=== PATIENT | male | born 1950 | race Caucasian/White ===

== ENCOUNTER 2016-07-24 22:51 | Inpatient (IN) | payer MEDICARE, BC, OTHER ==
[~2016-07-24] VITALS: Ht 190.5 cm; Wt 130.0 kg
[~2016-07-24 22:51] MED LIST: ACETAMIN-HYDROcod 325-5 MG PO; AMIO200 PO; ASPI81 PO; CLOP75 PO; CYMB60CA PO; DOCU1CAP39 PO; FENO1TAB76 PO; FURO20 PO; LEVEMIR SQ; METO25 PO; MISC-105; OMEG100037 PO; SIMV20 PO; WHEELCHAIR RENTAL RA; ZOLP10TA3 PO
[2016-07-24 22:53] VITALS: BP 149/77; PULSE 104; RESP 16; TEMP 96.5; O2SAT 93
[2016-07-24 23:01] VITALS: BP 171/85; PULSE 99; RESP 15; O2SAT 93
[2016-07-24 23:15] VITALS: BP 132/61; PULSE 92; RESP 16; O2SAT 93
[2016-07-24] MEDS ORDERED: SODIUM CHLOR 0.9% 1000 ML INJ 1,000 ML IV ONE (23:15)
--- NOTE | 2016-07-24 23:19 | PD ---
HPI Chief Complaint: Numbness/Tingling Time Seen by Provider: 23:00 Travel History International Travel<30 days: No Contact w/Intl Traveler<30days: No Traveled to known affect area: No History of Present Illness HPI 65-year-old male complaining of generalized malaise and weakness. Patient status post left eye surgery a week ago. Patient states that Dr. Chaudhari, melt helper in [place] , operated on his left eye. Patient was told that he has infection around the left eye. Patient states that he has some mild drainage from the left eye for the past 2 days. Patient was put on antibiotic gel and Keflex by mouth. Patient has decrease in appetite with generalized malaise and weakness since yesterday evening. Patient also developed severe diarrhea since yesterday evening. Patient states that he has intermittent fever since last night. 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 Patient states that the weakness on the left side is not new. Patient complains of severe generalized weakness that he is unable to ambulate this evening. Patient states that he has aching headache. Patient denies any right eye visual change. Patient denies any neck pain. Patient denies any chest pain or shortness of breath. Patient denies abdominal pain. Patient denies any nausea vomiting. Patient denies any blood or mucus in the stool. Patient denies dysuria or frequency. Patient has history of hypertension, diabetes, hyperlipidemia, CAD status post CABG and stent placement. Patient status post right carotid endarterectomy. Patient's on aspirin, Plavix. PFSH Past Medical History Arthritis: No Asthma: No Autoimmune Disease: No Blood Disorders: No Anxiety: No Depression: No Heart Rhythm Problems: No Cancer: No Cardiovascular Problems: Yes (HTN,CABG, STENTS x 2) High Cholesterol: Yes Chemotherapy: No Chest Pain: Yes Congestive Heart Failure: No COPD: No Cerebrovascular Accident: Yes Diabetes: Yes Patient Takes Glucophage: Yes Diminished Hearing: No Endocrine: No Gastrointestinal Disorders: No GERD: No Glaucoma: No Genitourinary: No Headaches: Yes Hepatitis: No Hiatal Hernia: No Hypertension: Yes Immune Disorder: No Kidney Stones: No Musculoskeletal: No Neurologic: Yes Psychiatric: No Reproductive: No Respiratory: No Integumentary: No Immunizations Current: Yes Migraines: Yes Radiation Therapy: No Renal Failure: No Seizures: No Sickle Cell Disease: No Sleep Apnea: No Thyroid Disease: No Ulcer: No Past Surgical History Abdominal Surgery: Yes (gallbladder removed appendectomy) AICD: No Appendectomy: Yes Arteriovenous Shunt: No Body Medical Devices: Pt and confirm no foriengn objects in body by accident or on purpose. Cardiac Surgery: Yes (right carotid endarterectomy AND LEFT,3 cardiac bypass) Cholecystectomy: Yes Ear Surgery: No Endocrine Surgery: No Eye Surgery: Yes (Left eye removal) Genitourinary Surgery: No Gynecologic Surgery: No Insulin Pump: No Joint Replacement: No Oral Surgery: No Pacemaker: No Thoracic Surgery: Yes (CABG) Other Surgery: Yes (CEA,KNEE) Social History Alcohol Use: Yes (SOCIAL) Tobacco Use: No Substance Use: No Allergies-Medications (Allergen,Severity, Reaction): Coded Allergies: No Known Allergies (Verified , 03/18/15) Reported Meds & Prescriptions Reported Meds & Active Scripts Active [ACETAMIN-HYDROcod 325-5 MG] 1 TAB Tab 1 Tab PO Q4H PRN Lasix 20 Mg Tab (Furosemide) 20 Mg Tab 20 Mg PO DAILY Levemir Insulin (Insulin Detemir) 100 Units/Ml Inj 20 Units SQ BID 30 Days Aspirin Low Strength (Aspirin) 81 Mg Chw 81 Mg PO DAILY Cordarone 200 Mg Tab (Amiodarone HCl) 200 Mg Tab 200 Mg PO Q12HR Simvastatin 20 mg (Simvastatin) 20 Mg Tab 1 Tab PO HS Metoprolol Tartrate 25 mg (Metoprolol Tartrate) 25 Mg Tab 25 Mg PO BID Tricor (Fenofibrate) 48 Mg Tab 48 Mg PO DAILY Cymbalta (Duloxetine Hcl) 60 Mg Cap 60 Mg PO DAILY Ambien 10 Mg Tab (Zolpidem Tartrate) 10 Mg Tab 10 Mg PO HS PRN Plavix (Clopidogrel Bisulfate) 75 Mg Tab 75 Mg PO DAILY Transport Chair Ultra Lig (Misc. Devices) 1 Mis Mis Ea Wheelchair Rental Removable Arms (Device) Device 1 Ea Colace 100 Mg Cap (Docusate Sodium) 100 Mg Cap 100 Mg PO DAILY Reported Fish Oil 1000 mg ([place]-3 Fatty Acids) 1 Cap Cap 1,000 Mg PO DAILY Review of Systems General / Constitutional: Positive: Fever Eyes: Positive: Drainage, Pain, No: Visual changes HENT: No: Headaches Cardiovascular: No: Chest Pain or Discomfort Respiratory: No: Shortness of Breath Gastrointestinal: No: Abdominal Pain Genitourinary: No: Dysuria Musculoskeletal: No: Pain Skin: No Rash Neurologic: No: Weakness Psychiatric: No: Depression Endocrine: No: Polydipsia Hematologic/Lymphatic: No: Easy Bruising Physical Exam Narrative GENERAL: Well-nourished, well-developed patient. SKIN: Focused skin assessment warm/dry. HEAD: Normocephalic. EYES: No scleral icterus. No injection or drainage. Patient has soft tissue swelling periorbital area left eye. NECK: Supple, trachea midline. No JVD or lymphadenopathy. CARDIOVASCULAR: Regular rate and rhythm without murmurs, gallops, or rubs. RESPIRATORY: Breath sounds equal bilaterally. No accessory muscle use. GASTROINTESTINAL: Abdomen soft, non-tender, nondistended. MUSCULOSKELETAL: No cyanosis, or edema. BACK: Nontender without obvious deformity. No CVA tenderness. Neurologic exam: Patient's awake and alert oriented 3. Patient moves all extremities well. Patient has left-sided drooping from previous surgery. No other obvious focal neurological deficit. Data Data Last Documented VS Vital Signs Date Time Temp Pulse Resp B/P Pulse Ox O2 Delivery O2 Flow Rate FiO2 07/25/16 02:04 96 20 158/74 98 Room Air 07/24/16 22:53 96.5 Orders Lactic Acid Sepsis Protocol (07/24/16 23:08) Electrocardiogram (07/24/16 23:09) Complete Blood Count With Diff (07/24/16 23:09) Comprehensive Metabolic Panel (07/24/16 23:09) Creatine Kinase (Cpk) (07/24/16 23:09) Troponin I (07/24/16 23:09) Prothrombin Time / Inr (Pt) (07/24/16 23:09) Act Partial Throm Time (Ptt) (07/24/16 23:09) Blood Culture (07/24/16 23:09) Urinalysis - C+S If Indicated (07/24/16 23:09) Chest, Single Ap (07/24/16 23:09) Ct Brain W/O Iv Contrast(Rout) (07/24/16 23:09) Iv Access Insert/Monitor (07/24/16 23:09) Ecg Monitoring (07/24/16 23:09) Oximetry (07/24/16 23:09) Sodium Chlor 0.9% 1000 Ml Inj (Ns 1000 M (07/24/16 23:15) CKMB (07/24/16 23:15) CKMB% (07/24/16 23:15) Ct Facial Bones W/O Iv Cont (07/24/16 ) Vancomycin Inj (Vancomycin Inj) (07/25/16 01:15) Ampicillin-Sulbactam Inj (Unasyn Inj) (07/25/16 01:15) Morphine Inj (Morphine Inj) (07/25/16 02:45) Ondansetron Inj (Zofran Inj) (07/25/16 02:45) Sodium Chlor 0.9% 1000 Ml Inj (Ns 1000 M (07/25/16 02:45) Labs Laboratory Tests Test 07/24/16 23:15 White Blood Count 9.1 TH/MM3 Red Blood Count 5.08 MIL/MM3 Hemoglobin 14.0 GM/DL Hematocrit 40.5 % Mean Corpuscular Volume 79.9 FL Mean Corpuscular Hemoglobin 27.5 PG Mean Corpuscular Hemoglobin 34.5 % Concent Red Cell Distribution Width 15.0 % Platelet Count 194 TH/MM3 Mean Platelet Volume 8.1 FL Neutrophils (%) (Auto) 81.2 % Lymphocytes (%) (Auto) 9.3 % Monocytes (%) (Auto) 8.8 % Eosinophils (%) (Auto) 0.0 % Basophils (%) (Auto) 0.7 % Neutrophils # (Auto) 7.4 TH/MM3 Lymphocytes # (Auto) 0.9 TH/MM3 Monocytes # (Auto) 0.8 TH/MM3 Eosinophils # (Auto) 0.0 TH/MM3 Basophils # (Auto) 0.1 TH/MM3 CBC Comment DIFF FINAL Differential Comment Prothrombin Time 11.7 SEC Prothromb Time International 1.1 RATIO Ratio Activated Partial 28.1 SEC Thromboplast Time Sodium Level 132 MEQ/L Potassium Level 3.5 MEQ/L Chloride Level 100 MEQ/L Carbon Dioxide Level 20.3 MEQ/L Anion Gap 12 MEQ/L Blood Urea Nitrogen 25 MG/DL Creatinine 2.04 MG/DL Estimat Glomerular Filtration 33 ML/MIN Rate Random Glucose 104 MG/DL Lactic Acid Level 2.3 mmol/L Calcium Level 9.0 MG/DL Total Bilirubin 0.9 MG/DL Aspartate Amino Transf 53 U/L (AST/SGOT) Alanine Aminotransferase 30 U/L (ALT/SGPT) Alkaline Phosphatase 64 U/L Total Creatine Kinase 318 U/L Creatine Kinase MB 1.7 NG/ML Creatine Kinase MB % 0.5 % Troponin I 0.03 NG/ML Total Protein 7.5 GM/DL Albumin 3.5 GM/DL MDM Medical Decision Making Medical Screen Exam Complete: Yes Emergency Medical Condition: Yes Interpretation(s) Last Impressions Chest X-Ray 07/24/16 0485 Signed Impressions: Service Date/Time: Sunday, July 24, 2016 23:24 - CONCLUSION: No acute disease. Rodriguez Sifuentes Jr., MD 1:[address] Brain shows no acute intracranial abnormality. CBC within normal limit. WBC 9.1. 81 neutrophil. Sodium 132. Bicarbonate 20.3. BUN 25. Creatinine 2.04. Lactic acid 2.3. Total CK 318. CT of facial bones shows artificial global involving the left orbit with significant preseptal soft tissue swelling. Retrobulbar tissues are clean. 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 Differential Diagnosis Differential diagnosis including sepsis, dehydration, electrolyte abnormality, TIA, CVA, viral syndrome. Narrative Course 65-year-old male with generalized malaise and weakness. Patient has diarrhea since last night. Patient status post CVA in the past. Patient status post left eye surgery a week ago and on Keflex and antibiotic gel. Normal saline solution 1 L IV bolus. Unasyn 3 g IV. Vancomycin 1 g IV. I spoke with melt helper on-call for Dr. Chaudhari. Advised medical admission and consult ophthalmology road commissioner for [place]. Diagnosis Primary Impression: Periorbital cellulitis of left eye Additional Impressions: Sinusitis Qualified Code: J01.40 - Subacute pansinusitis Renal insufficiency Gastroenteritis Admitting Information Admitting Physician Requests: Admit Teo Chen MD July 24, 2016 23:19
[2016-07-24 23:26] LABS: AUTOMATED NEUTROPHIL # 7.4 TH/MM3 (1.8-7.7); BASOPHIL # 0.1 TH/MM3 (0-0.2); BASOPHIL % 0.7 % (0.0-2.0); HEMATOCRIT 40.5 % (39.0-51.0); HEMO FLAGS DIFF FINAL; LYMPH % 9.3 % (9.0-44.0); LYMPHOCYTE # 0.9 TH/MM3 (1.0-4.8); MEAN CELL VOLUME 79.9 FL (80.0-100.0); MEAN CORPUSCULAR HEMOGLOBIN 27.5 PG (27.0-34.0); MEAN CORPUSCULAR HGB CONC 34.5 % (32.0-36.0); MONO % 8.8 % (0.0-8.0); NEUT % 81.2 % (16.0-70.0); PLATELET COUNT 194 TH/MM3 (150-450); RED BLOOD COUNT 5.08 MIL/MM3 (4.50-5.90); WHITE BLOOD COUNT 9.1 TH/MM3 (4.0-11.0)
--- NOTE | 2016-07-24 23:33 | RADRPT ---
EXAM DATE/TIME: 07/24/2016 23:24 [facility] COMPARISON: CHEST SINGLE AP, October 07, 2015, 6:20. INDICATIONS : Chest pain, weakness. MEDICAL HISTORY : Stroke. Hypercholesterolemia. Hypertension. Diabetic Dyspnea SURGICAL HISTORY : CABG. ENCOUNTER: Initial ACUITY: 1 day PAIN SCORE: 0/10 LOCATION: Bilateral chest FINDINGS: 2 portable frontal views of the chest demonstrate the lungs to be symmetrically aerated without evide nce of mass, infiltrate or effusion. The cardiomediastinal contours are unremarkable. Osseous struc tures are intact. Median sternotomy wires. CONCLUSION: No acute disease. Rodriguez Sifuentes Jr., MD on July 24, 2016 at 23:31 Board Certified Radiologist. This report was verified electronically.
[2016-07-24 23:43] LABS: APTT (PATIENT) 28.1 SEC (24.3-30.1); INTERNATIONAL NORMALIZED RATIO 1.1 RATIO; PROTHROMBIN TIME - PATIENT 11.7 SEC (9.8-11.6)
[2016-07-24 23:49] LABS: ALT (GPT) 30 U/L (12-78); ANION GAP 12 MEQ/L (5-15); AST (GOT) 53 U/L (15-37); BICARBONATE 20.3 MEQ/L (21.0-32.0); BLOOD UREA NITROGEN 25 MG/DL (7-18); CHLORIDE 100 MEQ/L (98-107); GLOMERULAR FILTRATION RATE 33 ML/MIN (>89); POTASSIUM 3.5 MEQ/L (3.5-5.1); SODIUM (NA) 132 MEQ/L (136-145)
[2016-07-24 23:53] LABS: ALKALINE PHOSPHATASE 64 U/L (45-117); CREATINE KINASE 318 U/L (39-308); TOTAL BILIRUBIN ADULT 0.9 MG/DL (0.2-1.0)
[2016-07-25] VITALS (11 sets, daily range): BP systolic 123–158; BP diastolic 65–79; PULSE 84–100; RESP 16–25; TEMP 98.6–101; O2SAT 90–98
[2016-07-25 00:05] LABS: CKMB 1.7 NG/ML (0.5-3.6)
--- NOTE | 2016-07-25 01:01 | RADRPT ---
EXAM DATE/TIME: 07/25/2016 00:36 [facility] COMPARISON: CT BRAIN W/O CONTRAST, March 18, 2015, 19:55. INDICATIONS : Cephalgia. General weakness. Fever. RADIATION DOSE: 63.18 CTDIvol (mGy) MEDICAL HISTORY : Cerebrovascular disease. Hypertension. SURGICAL HISTORY : CABG Left eye removal one week ago. ENCOUNTER: Initial ACUITY: 1 week PAIN SCALE: 5/10 LOCATION: cranial TECHNIQUE: Multiple contiguous axial images were obtained of the head. Using automated exposure control and adj ustment of the mA and/or kV according to patient size, radiation dose was kept as low as reasonably a chievable to obtain optimal diagnostic quality images. FINDINGS: CEREBRUM: The ventricles are normal for age. No evidence of midline shift, mass lesion, hemorrhage or acute in farction. No extra-axial fluid collections are seen. POSTERIOR FOSSA: The cerebellum and brainstem are intact. The 4th ventricle is midline. The cerebellopontine angle i s unremarkable. EXTRACRANIAL: The paranasal sinuses and mastoid air cells are clear.. SKULL: The calvaria is intact. No evidence of skull fracture. CONCLUSION: 1. See the CT of the facial bones dictated separately. 2. No acute intracranial abnormality. Rodriguez Sifuentes Jr., MD on July 25, 2016 at 0:58 Board Certified Radiologist. This report was verified electronically.
--- NOTE | 2016-07-25 01:04 | RADRPT ---
EXAM DATE/TIME: 07/25/2016 00:36 [facility] COMPARISON: No previous studies available for comparison. INDICATIONS : Patient left eye removal one week ago. Complains of general weakness, headache and fever. RADIATION DOSE: 63.18 CTDIvol (mGy) MEDICAL HISTORY : Cerebrovascular disease. Hypertension. SURGICAL HISTORY : CABG Left eye removal. ENCOUNTER: Initial ACUITY: 1 week PAIN SCORE: 5/10 LOCATION: Left facial TECHNIQUE: Volumetric scanning of the facial bones was performed. Using automated exposure control and adjustme nt of the mA and/or kV according to patient size, radiation dose was kept as low as reasonably achiev able to obtain optimal diagnostic quality images. FINDINGS: There is an artificial eye involving the left orbit. There is soft tissue swelling involving the pre -septal soft tissues. The retro-bulbar fat is clean. Optic nerve and extraocular muscles are unremark able. The right globe in order unremarkable. Mucosal thickening is seen involving the frontal sinuses bilaterally and anterior ethmoid air cells bilaterally. No air-fluid levels. CONCLUSION: 1. Artificial globe involving the left orbit with significant preseptal soft tissue swelling. Retrobu lbar tissues are clean. 2. 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 Rodriguez Sifuentes Jr., MD on July 25, 2016 at 1:00 Board Certified Radiologist. This report was verified electronically.
[2016-07-25] MEDS ORDERED: AMPICILLIN-SULBACTAM INJ 3 GM in SODIUM CHLORIDE 0.9% INJ 100 ML IV ONE (01:15)
[2016-07-25] MEDS ORDERED: VANCOMYCIN INJ 1,000 MG in SODIUM CHLOR 0.9% 250 ML INJ 250 ML IV ONE (01:15)
[2016-07-25 01:16] LABS: LACTIC ACID GHOST NOT REPORTABLE
[2016-07-25] MEDS ORDERED: MORPHINE SULFATE 4 MG/ML INJ IV PUSH ONE (02:45)
[2016-07-25] MEDS ORDERED: ONDANSETRON HCL 4 MG/2 ML VIAL IV PUSH ONE (02:45)
[2016-07-25] MEDS ORDERED: SODIUM CHLOR 0.9% 1000 ML INJ 1,000 ML IV SCH (02:45)
[2016-07-25] MEDS ORDERED: Vancomycin Consult Pharmacy 1 EA OTHER SCH (03:30)
[2016-07-25] MEDS ORDERED: GLUCAGON 1 MG/ML VIAL OTHER PRN (03:30)
[2016-07-25] MEDS ORDERED: SODIUM CHLORIDE 0.9% FLUSH 10 ML FLUSH IV FLUSH PRN (03:30)
[2016-07-25] MEDS ORDERED: NALOXONE HCL 0.4 MG/ML AMP IV PRN (03:30)
[2016-07-25] MEDS ORDERED: ONDANSETRON HCL 4 MG/2 ML VIAL IVP PRN (03:30)
[2016-07-25] MEDS ORDERED: DEXTROSE 50% IN WATER 50 ML VIAL(D50) IV PUSH PRN (03:30)
--- NOTE | 2016-07-25 03:37 | HHI.HP ---
[facility] Lenard Marti MD Admission Diagnosis periorbital cellulitis. Renal insufficiency Diagnoses: Chief Complaint: cant move my arm and leg Travel History International Travel<30 Days: No Contact w/Intl Traveler <30 Da: No Traveled to Known Affected Are: No Sepsis Criteria SIRS Criteria (2 or more): Heart rate over 90 History of Present Illness hx from patient, ER communication and review of records stated came to hospital because he could not move his LUE and LLE , with associated numbness and tingling starting around 10p.m. 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 and this is second time since surgery, had fever, chills no nausea, no vomiting, no black or red stool, no blood in urine however, had diarrhea- 2 days, about 10x each day no drainage or pus from surgery site he did see his eye surgeon on Saturday and has an appointment to see him tomorrow Review of Systems Except as stated in HPI: all other systems reviewed are Neg Past Family Social History Past Medical History cva- 2015 - residual weakness on LUE and LLE htn dm Past Surgical History left eye surgery last coronoary angiogram Allergies: Coded Allergies: No Known Allergies (Verified , 03/18/15) Family History none Social History never smoke socially only drinks no drugs Physical Exam Vital Signs Vital Signs Date Time Temp Pulse Resp B/P Pulse Ox O2 Delivery O2 Flow Rate FiO2 07/25/16 02:04 96 20 158/74 98 Room Air 07/25/16 00:51 88 18 150/79 94 Room Air 07/24/16 23:15 92 16 132/61 93 Room Air 07/24/16 23:01 99 15 171/85 93 Room Air 07/24/16 22:53 96.5 104 16 149/77 93 Room Air Physical Exam GENERAL: This is a well-nourished, well-developed patient, in no apparent distress. SKIN: No rashes, ecchymoses or lesions. Cool and dry. HEAD: Atraumatic. Normocephalic. No temporal or scalp tenderness. EYES: LEFT eye shut, no drianage from surgical site ENT: Nose without bleeding, purulent drainage or septal hematoma. . Airway patent. NECK: Trachea midline. No JVD. Supple, nontender, no meningeal signs. CARDIOVASCULAR: Regular rate and rhythm without murmurs, gallops, or rubs. RESPIRATORY: bilaerally decreased air entry GASTROINTESTINAL: Abdomen soft, non-tender, nondistended. No guarding. MUSCULOSKELETAL: Extremities without clubbing, cyanosis, or edema. No calf tenderness. NEURO:- LUE and LLE about 3/5- difficult exam due to pt's body habitus, left facial droop- was told chronic. Normal speech. Laboratory Laboratory Tests Test 07/24/16 23:15 White Blood Count 9.1 Red Blood Count 5.08 Hemoglobin 14.0 Hematocrit 40.5 Mean Corpuscular Volume 79.9 Mean Corpuscular Hemoglobin 27.5 Mean Corpuscular Hemoglobin 34.5 Concent Red Cell Distribution Width 15.0 Platelet Count 194 Mean Platelet Volume 8.1 Neutrophils (%) (Auto) 81.2 Lymphocytes (%) (Auto) 9.3 Monocytes (%) (Auto) 8.8 Eosinophils (%) (Auto) 0.0 Basophils (%) (Auto) 0.7 Neutrophils # (Auto) 7.4 Lymphocytes # (Auto) 0.9 Monocytes # (Auto) 0.8 Eosinophils # (Auto) 0.0 Basophils # (Auto) 0.1 CBC Comment DIFF FINAL Differential Comment Prothrombin Time 11.7 Prothromb Time International 1.1 Ratio Activated Partial 28.1 Thromboplast Time Sodium Level 132 Potassium Level 3.5 Chloride Level 100 Carbon Dioxide Level 20.3 Anion Gap 12 Blood Urea Nitrogen 25 Creatinine 2.04 Estimat Glomerular Filtration 33 Rate Random Glucose 104 Lactic Acid Level 2.3 Calcium Level 9.0 Total Bilirubin 0.9 Aspartate Amino Transf 53 (AST/SGOT) Alanine Aminotransferase 30 (ALT/SGPT) Alkaline Phosphatase 64 Total Creatine Kinase 318 Creatine Kinase MB 1.7 Creatine Kinase MB % 0.5 Troponin I 0.03 Total Protein 7.5 Albumin 3.5 Date/Time Procedure Status Source Growth 07/24/16 23:15 Aerobic Blood Culture Received Blood Peripheral Pending 5/9/17 23:15 Anaerobic Blood Culture Received Blood Peripheral Pending Result Diagram: 07/24/16 2315 07/24/165 Imaging Last [address] 07/24/162308 Signed Impressions: Service Date/Time: Monday, July 25, 2016 00:36 - CONCLUSION: 1. See the CT of the facial bones dictated separately. 2. No acute intracranial abnormality. Rodriguez Sifuentes Jr., MD Chest X-Ray 07/24/162308 Signed Impressions: Service Date/Time: Sunday, July 24, 2016 23:24 - CONCLUSION: No acute disease. Rodriguez Sifuentes Jr., MD Maxillofacial CT 07/24/16 0000 Signed Impressions: Service Date/Time: Monday, July 25, 2016 00:36 - CONCLUSION: 1. Artificial globe involving the left orbit with significant preseptal soft tissue swelling. Retrobulbar tissues are clean. 2. 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 Rodriguez Sifuentes Jr., MD Assessment and Plan Assessment and Plan Impression: Probable SIRS recent left eye surgery with artificial globe Left sided weakness- acute on chronic per patient possible TIA Acute renal failure Lactic acid acidosis Plan: iv hydration with NS with 40meq kcl at 84cc/hr neurochecks q4hrs prior imaging studies reviewed- echo- carotid sono repeat renal function and lactic acid level post hydration hold metformin dvt prophylaxis with lovenox Discussed Condition With patient, ER MD , nursing staff Physician Certification 2 Midnight Certification Type: Admission for Inpatient Services Order for Inpatient Services The services are ordered in accordance with Medicare regulations or non- Medicare payer requirements, as applicable. In the case of services not specified as inpatient-only, they are appropriately provided as inpatient services in accordance with the 2-midnight benchmark. Estimated LOS (days): 2 days is the estimated time the patient will need to remain in the hospital, assuming treatment plan goals are met and no additional complications. Post-Hospital Plan: Home Ally Dawkins MD July 25, 2016 03:37
[2016-07-25] MEDS ORDERED: VANCOMYCIN 1,000 MG/NS 250 ML IV ONE ×2 (04:00)
[2016-07-25] MEDS: NS + KCL 40 MEQ INJ 1,000 ML IV SCH ×2 (04:12→16:42)
[2016-07-25] MEDS: AMPICILLIN-SULBACTAM INJ 3 GM in SODIUM CHLORIDE 0.9% INJ 100 ML IV SCH ×4 (04:12→21:20)
[2016-07-25] MEDS ORDERED: FENO1TAB76 PO (04:29)
[2016-07-25] MEDS ORDERED: PLAV75TA29 PO (04:29)
[2016-07-25] MEDS ORDERED: CYMB60CA PO (04:29)
[2016-07-25] MEDS ORDERED: SIMV20TA PO (04:29)
[2016-07-25] MEDS ORDERED: FURO1TAB62 PO (04:29)
[2016-07-25] MEDS ORDERED: AMBI10TA PO (04:29)
[2016-07-25] MEDS ORDERED: METO25TA3 PO (04:29)
[2016-07-25] MEDS ORDERED: NORC5TAB PO (04:29)
[2016-07-25] MEDS ORDERED: LEVEMIR SQ (04:29)
[2016-07-25] MEDS ORDERED: ASPI1TAB69 PO (04:29)
[2016-07-25] MEDS: INSULIN ASPART SUPPLEMENTAL SCALE SQ SCH ×4 (06:46→21:00)
[2016-07-25 07:16] LABS: BLOOD, URINE TRACE (NEG); GLUCOSE,URINE NEG (NEG); KETONE, URINE TRACE mg/dL (NEG); MUCUS URINE FEW /lpf (OCC); NITRITE,URINE NEG (NEG); SQUAMOUS EPITHELIAL CELL URINE <1 /hpf (0-5); URIC ACID CRYSTALS, URINE OCC /hpf; URINE COLOR YELLOW (YELLW/STRAW)
[2016-07-25 07:17] LABS: COMMENT (UR) CULT NOT INDICATED; CULTURE IF INDICATED CULT NOT INDICATED
[2016-07-25] MEDS: SODIUM CHLORIDE 0.9% FLUSH 10 ML FLUSH IV FLUSH SCH ×2 (09:00→21:20)
[2016-07-25] MEDS: FUROSEMIDE 20 MG TAB PO SCH (09:30)
[2016-07-25] MEDS: DULoxetine HCl DR 60 MG CAP PO SCH (09:30)
[2016-07-25] MEDS: METOPROLOL TARTRATE 25 MG TAB PO SCH ×2 (09:30→21:19)
[2016-07-25] MEDS: FENOFIBRATE 48 MG TAB PO SCH (09:30)
[2016-07-25] MEDS: INSULIN DETEMIR 100 UNITS/ML VIAL SQ SCH ×2 (09:33→21:54)
[2016-07-25] MEDS ORDERED: ACETAMINOPHEN 325 MG TAB PO PRN (10:15)
[2016-07-25 14:07] LABS: C. DIFF EPI 027 PRESUMPTIVE NEGATIVE (NEGATIVE); C. DIFF TOXIN PCR NEGATIVE (NEGATIVE)
--- NOTE | 2016-07-25 16:21 | HHI.PR ---
Subjective Remarks Follow-up for left-sided weakness and diarrhea. Patient these have diarrhea. Patient stated that he still feels significant weakness on his left side. Deny any dominant pain, nausea vomiting. Patient had a fever today. Otherwise he has no other complaints. Objective Vitals Vital Signs Date Time Temp Pulse Resp B/P Pulse Ox O2 Delivery O2 Flow Rate FiO2 07/25/16 12:00 99.9 86 22 129/75 95 07/25/16 08:00 101.0 100 25 145/79 95 07/25/16 04:58 100.0 92 21 142/77 98 07/25/16 04:00 96 17 131/65 97 Nasal Cannula 2 07/25/16 03:00 90 Room Air 07/25/16 03:00 96 Nasal Cannula 2 07/25/16 02:04 96 20 158/74 98 Room Air 07/25/16 00:51 88 18 150/79 94 Room Air 07/24/16 23:15 92 16 132/61 93 Room Air 07/24/16 23:01 99 15 171/85 93 Room Air 07/24/16 22:53 96.5 104 16 149/77 93 Room Air I/O 07/24/16 07/24/16 07/24/16 07/25/16 07/25/16 07/25/16 06:59 14:59 22:59 06:59 14:59 22:59 Intake Total 75 ml 250 ml Output Total 1600 ml Balance 75 ml -1350 ml Intake Oral 75 ml 250 ml Output Urine Total 1600 ml # Voids 1 1 # Bowel Movements 1 3 Result Diagram: 07/24/16 2315 07/24/16 2315 Objective Remarks GENERAL: in NAD HEENT: left eyelid is matted shut. CARDIOVASCULAR: Regular rate and rhythm without murmurs, gallops, or rubs. RESPIRATORY: Breath sounds equal bilaterally. No accessory muscle use. GASTROINTESTINAL: Abdomen soft, non-tender, nondistended. MUSCULOSKELETAL: No cyanosis, or edema. BACK: Nontender without obvious deformity. No CVA tenderness. NEURO: AAO X 3. CN 2-12 intact. Sensation and motor grossly intact. Medications and IVs Current Medications Sodium Chloride 1,000 ml @ 999 mls/hr BOLUS ONCE IV Last administered on t 23:21; Start 07/24/16 at 23:15; Stop 07/25/16 at 00:15; Status DC Vancomycin HCl 1000 mg/Sodium Chloride 250 ml @ 250 mls/hr ONCE ONCE IV Last administered on 07/25/16 02:56; Start 07/25/16 at 01:15; Stop 07/25/16 at 02:14 ; Status DC Ampicillin Sodium/ Sulbactam Sodium/ Sodium Chloride (Unasyn Inj/NS Inj) 100 ml @ 200 mls/hr ONCE ONCE IV ; Start 07/25/16 at 01:15; Stop 07/25/16 at 01:44; Status Cancel Morphine Sulfate (Morphine Inj) 2 mg ONCE ONCE IV PUSH Last administered on 02:57; Start 07/25/16 at 02:45; Stop 07/25/16 at 02:46; Status DC Ondansetron HCl 4 mg 4 mg ONCE ONCE IV PUSH Last administered on 07/25/16 02: 57; Start 07/25/16 at 02:45; Stop 07/25/16 at 02:46; Status DC Sodium Chloride (NS 1000 ml Inj) 1,000 ml @ 125 mls/hr Q8H IV Last administered on 07/25/16 02:57; Start 07/25/16 at 02:45; Stop 07/25/16 at 03:39 ; Status DC Sodium Chloride (NS Flush) 2 ml UNSCH PRN IV FLUSH FLUSH AFTER USING IV ACCESS ; Start 07/25/16 at 03:30 Sodium Chloride (NS Flush) 2 ml BID IV FLUSH ; Start 07/25/16 at 09:00 Ondansetron HCl (Zofran Inj) 4 mg Q6H PRN IVP NAUSEA OR VOMITING; Start at 03:30 Naloxone HCl 0.4 mg 0.4 mg UNSCH PRN IV SEE LABEL COMMENTS; Start 07/25/16 at 03:30 Pharmacy Profile Note (Vancomycin Consult Pharmacy) 0 ml @ 0 mls/hr UNSCH OTHER ; Start 07/25/16 at 03:30 Dextrose (D50w (Vial) Inj) 25 ml UNSCH PRN IV PUSH HYPOGLYCEMIA-SEE COMMENTS; Start 07/25/16 at 03:30 Glucagon (Glucagon Inj) 1 mg UNSCH PRN OTHER HYPOGLYCEMIA-SEE COMMENTS; Start 07/25/16 at 03:30 Insulin Aspart 1 1 ACHS SLIDING SCALE SQ Last administered on 07/25/16 12:10 ; Start 07/25/16 at 07:00 Ampicillin Sodium/ Sulbactam Sodium 3 gm/Sodium Chloride 100 ml @ 200 mls/hr Q6H IV Last administered on 07/25/16 09:37; Start 07/25/16 at 04:00 Potassium Chloride/Sodium Chloride 1,000 ml @ 84 mls/hr [id number] IV Last administered on 07/25/16 04:12; Start 07/25/16 at 03:45 Vancomycin HCl/ Sodium Chloride (Vancomycin Inj/ NS 250 ml Inj) 250 ml @ 250 mls/hr ONCE ONCE IV Last administered on 07/25/16 05:52; Start 07/25/16 at 04 :00; Stop 07/25/16 at 04:59; Status DC Duloxetine HCl (Cymbalta Dr) 60 mg DAILY PO Last administered on 07/25/16 09: 30; Start 07/25/16 at 09:00 Fenofibrate (Tricor) 48 mg DAILY PO Last administered on 07/25/16 09:30; Start 07/25/16 at 09:00 Furosemide (Lasix) 20 mg DAILY PO Last administered on 07/25/16 09:30; Start 07/25/16 at 09:00 Insulin Detemir (Levemir Inj) 20 units BID SQ Last administered on 07/25/16 09 :33; Start 07/25/16 at 09:00 Metoprolol Tartrate (Lopressor) 25 mg BID PO Last administered on 07/25/16 09: 30; Start 07/25/16 at 09:00 Zolpidem Tartrate (Ambien) 10 mg HS PRN PO INSOMNIA; Start 07/25/16 at 06:15 Pravastatin Sodium (Pravachol) 40 mg HS PO ; Start 07/25/16 at 21:00 Acetaminophen (Tylenol) 650 mg Q4H PRN PO fever>101; Start 07/25/16 at 10:15 Metronidazole (Flagyl) 500 mg Q8HR PO ; Start 07/25/16 at 16:15 A/P Assessment and Plan Probable SIRS -Fever and tachycardia. Lactic acidosis 2.5. -Questionable preseptal cellulitis. -See treatment as below. recent left eye surgery with artificial globe -CT scan showed preseptal edema and sinus disease. -patient is spiking fevers so was started on unasyn and vancomycin for possible cellulitis. -Continue Unasyn and vancomycin. Cashier Wrapper and infectious disease consulted. Pending recommendation. Left sided weakness- acute on chronic per patient -Patient has a history of CVA. Home medication resumed. -possible TIA. Patient stated that he feels like his left side is a lot weaker but on exam the pretty equal. -We'll get MRI. Diarrhea -C. difficile negative. Most likely secondary to antibiotic use. Patient was put on Flagyl by infectious disease. We'll also start probiotics. Acute renal failure -No baseline. Patient is on IV fluids. Will follow with a repeat creatinine. Strict ins and outs. Type 2 diabetes insulin dependent -On insulin sliding scale. Metformin held secondary to acute renal failure. dvt prophylaxis with lovenox Amberly Bishop MD July 25, 2016 16:21
--- NOTE | 2016-07-25 16:42 | PD.CONS ---
History of Present Illness Service Infectious disease Consult Requested By Dr Jesenia Bishop Reason for Consult Evaluate patient with possible orbital cellulitis Primary Care Physician Lenard Marti MD Diagnoses: History of Present Illness Patient seen and examined. Records reviewed. Patient is a 65-year-old male, presented to the hospital for further evaluation of diarrhea and significant lower extremity weakness. Patient is not a very good historian. He had stated on his H&P that he presented to the hospital because he could not move his left upper extremity and left lower extremity with some numbness and tingling. Patient gave a history that he had eye surgery July 19. 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 He apparently developed problem and patient stated that his body rejected the globe so he had replacement of the artificial globe on July 19. He was done as an outpatient. He was told that he would have just a little bit of brown drainage and some tearing. He was due to see his doctor this week. He has not really had any significant symptoms referable to his left eye. After the procedure he was given some medication and said that he also got some oral antibiotics. The list of medications from home however did not include any antibiotics. He was taking the antibiotic twice a day. About 4 days prior to admission he started having diarrhea and he said it was about 10 times or more, with some cramping. He did it again the following day, and he developed significant weakness and he could not really get up and ambulate. He was very weak, and he presented to the hospital for further evaluation and treatment. There was mention that he also was having some fever and chills. He did not see any blood in his stool. He denies any respiratory complaint. There was no nausea or vomiting, or any urinary complaints. Since admission patient has had some fevers. His chest x-ray is normal. He had maxillofacial CT which showed some findings of preseptal cellulitis. His WBC is normal. Urinalysis was unremarkable. There was an ophthalmology consult , and he had requested infectious disease consultation for possible cellulitis. Review of Systems Constitutional: COMPLAINS OF: Fatigue, Fever, Chills Eyes: COMPLAINS OF: Vision loss Ears, nose, mouth, throat: DENIES: Nasal discharge, Oral lesions, Throat pain, Ear Pain, Sinus Pain, Toothache Respiratory: DENIES: Cough, Shortness of breath Cardiovascular: DENIES: Chest pain, Palpitations, Dyspnea on Exertion Gastrointestinal: COMPLAINS OF: Abdominal pain, Diarrhea, DENIES: Nausea, Vomiting, Difficulty Swallowing Genitourinary: DENIES: Urgency, Dysuria Musculoskeletal: DENIES: Joint pain, Joint Swelling Integumentary: DENIES: Rash Neurologic: DENIES: Headache Psychiatric: DENIES: Hallucinations Past Family Social History Allergies: Coded Allergies: No Known Allergies (Verified , 03/18/15) Past Medical History CAD s/p cardiac stents and CABG x 4 CVA 10/15/08 and 03/20/15 s/p basilar artery balloon placement Type 2 DM Hyperlipidemia Hypertension TIAs Past Surgical History Appendectomy Cholecystectomy Elbow surgery Left Carotid Endarterectomy and stenting 06/13/10 Right Carotid Endarterectomy 04/11/10 Left Knee Synovectomy with removal of loose bodies 09/20 Left Knee Arthroscopy 08/21 Left temporal artery biopsy - benign/no temporal arteritis detected - 01/26/15 Basilar artery balloon 2016 CABG x 4 10/19/11 Coronary stent placement Placement artificial globe L eye Active Ordered Medications Tylenol Unasyn Cymbalta Tricor Lasix Insulin Lopressor Zofran Potassium Pravachol Ambien Social History Tobacco: never smoked Alcohol: social use Illicit Drugs: denies Physical Exam Vital Signs Vital Signs Date Time Temp Pulse Resp B/P Pulse Ox O2 Delivery O2 Flow Rate FiO2 07/25/16 12:00 99.9 86 22 129/75 95 07/25/16 08:00 101.0 100 25 145/79 95 07/25/16 04:58 100.0 92 21 142/77 98 07/25/16 04:00 96 17 131/65 97 Nasal Cannula 2 07/25/16 03:00 90 Room Air 07/25/16 03:00 96 Nasal Cannula 2 07/25/16 02:04 96 20 158/74 98 Room Air 07/25/16 00:51 88 18 150/79 94 Room Air 07/24/16 23:15 92 16 132/61 93 Room Air 07/24/16 23:01 99 15 171/85 93 Room Air 07/24/16 22:53 96.5 104 16 149/77 93 Room Air Physical Exam GENERAL: This is an obese, well-developed male, awake and alert, not in respiratory distress. SKIN: Cool and dry. No generalized rash, no ecchymosis. HEAD: Normocephalic. No temporal or scalp tenderness. EYES: R Pupil equal round and reactive. Extraocular motions intact. No scleral icterus. No injection or drainage. L eye - shut closed, has some brownish drainage, no significant redness, no purulence ENT: Nose without bleeding, or purulent drainage. Moist oral mucosa, wears upper dentures. Throat without erythema, or exudate. Uvula midline. Airway patent. NECK: Trachea midline. No JVD or lymphadenopathy. Supple, nontender, no meningeal signs. CARDIOVASCULAR: Regular rate and rhythm without murmurs, gallops, or rubs. RESPIRATORY: Clear to auscultation. Breath sounds equal bilaterally. No wheezes , rales, or rhonchi. GASTROINTESTINAL: Abdomen soft, bowel sounds present and normoactive, nondistended, min tender. No hepato-splenomegaly, or palpable masses. No guarding. No rebound MUSCULOSKELETAL: Extremities without clubbing, cyanosis, or edema. No joint tenderness, effusion, or edema noted. No calf tenderness. Negative Homans sign bilaterally. NEUROLOGICAL: Awake and alert. No facial asymmetry. R eye full EOM. Tongue midline. UE motor 5/5. LE 5/5. No Babinski, no clonus. Slightly slurred speech. PSYCH: Calm and cooperative LINE: PIV no evidence of infection Laboratory Laboratory Tests Test 07/24/16 07/25/16 07/25/16 23:15 06:45 12:34 White Blood Count 9.1 Red Blood Count 5.08 Hemoglobin 14.0 Hematocrit 40.5 Mean Corpuscular Volume 79.9 Mean Corpuscular Hemoglobin 27.5 Mean Corpuscular Hemoglobin 34.5 Concent Red Cell Distribution Width 15.0 Platelet Count 194 Mean Platelet Volume 8.1 Neutrophils (%) (Auto) 81.2 Lymphocytes (%) (Auto) 9.3 Monocytes (%) (Auto) 8.8 Eosinophils (%) (Auto) 0.0 Basophils (%) (Auto) 0.7 Neutrophils # (Auto) 7.4 Lymphocytes # (Auto) 0.9 Monocytes # (Auto) 0.8 Eosinophils # (Auto) 0.0 Basophils # (Auto) 0.1 CBC Comment DIFF FINAL Differential Comment Prothrombin Time 11.7 Prothromb Time International 1.1 Ratio Activated Partial 28.1 Thromboplast Time Sodium Level 132 Potassium Level 3.5 Chloride Level 100 Carbon Dioxide Level 20.3 Anion Gap 12 Blood Urea Nitrogen 25 Creatinine 2.04 Estimat Glomerular Filtration 33 Rate Random Glucose 104 Lactic Acid Level 2.3 Calcium Level 9.0 Total Bilirubin 0.9 Aspartate Amino Transf 53 (AST/SGOT) Alanine Aminotransferase 30 (ALT/SGPT) Alkaline Phosphatase 64 Total Creatine Kinase 318 Creatine Kinase MB 1.7 Creatine Kinase MB % 0.5 Troponin I 0.03 Total Protein 7.5 Albumin 3.5 Urine Color YELLOW Urine Turbidity HAZY Urine pH 5.0 Urine Specific [place] 1.032 Urine Protein TRACE Urine Glucose (UA) NEG Urine Ketones TRACE Urine Occult Blood TRACE Urine Nitrite NEG Urine Bilirubin NEG Urine Urobilinogen LESS THAN 2.0 Urine Leukocyte Esterase NEG Urine RBC 8 Urine WBC 1 Urine Squamous Epithelial <1 Cells Urine Uric Acid Crystals OCC Urine Mucus FEW Microscopic Urinalysis Comment CULT NOT INDICATED Stool C. difficile Toxin (PCR) NEGATIVE Stl C. difficile Toxin PRESUMPTIVE Epiderm 027 NEGATIVE Date/Time Procedure Status Source Growth 07/24/16 23:15 Aerobic Blood Culture - Preliminary Resulted Blood Peripheral NO GROWTH IN 1 DAY 07/24/16 23:15 Anaerobic Blood Culture - Preliminary Resulted Blood Peripheral NO GROWTH IN 1 DAY Result Diagram: 07/24/16 2315 07/24/16 2315 Imaging RADIOLOGY STUDIES/FILMS REVIEWED Head CT [id number]/24/[id number] Signed Impressions: Service Date/Time: Monday, July 25, 2016 00:36 - CONCLUSION: 1. See the CT of the facial bones dictated separately. 2. No acute intracranial abnormality. Rodriguez Sifuentes Jr., MD Chest X-Ray [id number] Signed Impressions: Service Date/Time: Sunday, July 24, 2016 23:24 - CONCLUSION: No acute disease. Rodriguez Sifuentes Jr., MD Maxillofacial CT 07/24/16 0000 Signed Impressions: Service Date/Time: Monday, July 25, 2016 00:36 - CONCLUSION: 1. Artificial globe involving the left orbit with significant preseptal soft tissue swelling. Retrobulbar tissues are clean. 2. 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 Rodriguez Sifuentes Jr., MD Assessment and Plan Assessment and Plan IMPRESSION Sepsis on presentation, source? - complains of diarrhea, C diff negative, ?other infectious etiology - UA ok - CXR clear, no synpotoms - clinically his L eye has no swelling or redness or induration S/P L artificial globe placement Renal insufficiency likely due to diarrhea, dehydration RECOMMENDATION On Unasyn Got dose of vanco Add Flagyl CT A/P when creatinine a little better Check stool studies Follow C/S Follow clinically I wll follow along with you Thank you for this consultation Karen Junior MD July 25, 2016 16:42
[2016-07-25] MEDS: LACTOBACILLUS ACIDOPHILUS TAB PO SCH (17:00)
[2016-07-25] MEDS: metroNIDAZOLE 500 MG TAB PO SCH ×2 (17:00→21:19)
--- NOTE | 2016-07-25 19:48 | EKG ---
Date Performed: 07/24/2016 Time Performed: 23:02:24 PTAGE: 65 years EKG: Sinus rhythm WITH FIRST DEGREE AV BLOCK LEFT ATRIAL ENLARGEMENT MODERATE INTRAVENTRICULAR CONDUCTION DELAY NONSPE CIFIC ST & T-WAVE ABNORMALITY ABNORMAL ECG PREVIOUS TRACING : 10/05/2015 04.39 Compared to the previous tracing QRS wider DOCTOR: Melonie Baum Interpretating Date/Time 07/25/2016 19:46:40
[2016-07-25] MEDS: ZOLPIDEM TARTRATE 10 MG TAB PO PRN (21:19)
[2016-07-25] MEDS: PRAVASTATIN SOD 40 MG TAB PO SCH (21:19)
--- NOTE | 2016-07-25 22:31 | MB ---
cc: ZULY WILSON M.D. DATE OF CONSULTATION 07/25/2016 REASON FOR CONSULTATION Preseptal cellulitis. 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 The patient has a four day history of progressive diarrhea with some bilateral lower extremity weakness. There was also a little discharge from the left eye surgical site. Ophthalmology consultation was requested early this morning. The patient was started on Unasyn and vancomycin. C. diff studies on the stool are apparently negative. PHYSICAL EXAMINATION The physical examination is limited to the eyes and ocular adnexa. Basically the right eye is normal. On the left there is minimal upper and lower lid edema. Upon opening the lid the conjunctiva is completely noninjected and nonedematous. There is no purulent discharge. There is minimal, if any, tenderness to palpation of the left orbital implant. IMAGING CT scan of the facial bones shows only some soft tissue swelling of the preseptal tissues. There is no evidence of orbital edema or abscess. IMPRESSION Completely normal postoperative examination for a patient six days out from orbital surgery. There is really no evidence of preseptal or post septal ( orbital ) cellulitis. From an ophthalmology standpoint the patient may be discharged. Obviously his febrile diarrheal illness is of greater concern at this point. I will check on him in a couple of days if he is still here in the hospital. He is instructed to follow up with his orbital surgeon in [place] on Saturday. MD KUSUM Jackson/SOURAV /6:18 PM /10:07 PM
[2016-07-26] VITALS: BP 148/82; PULSE 92; RESP 22; TEMP 98.9; O2SAT 96
[2016-07-26] MEDS: NS + KCL 40 MEQ INJ 1,000 ML IV SCH ×3 (03:35→21:44)
[2016-07-26 04:00] VITALS: BP 127/80; PULSE 86; RESP 20; TEMP 97.8; O2SAT 97
[2016-07-26] MEDS: AMPICILLIN-SULBACTAM INJ 3 GM in SODIUM CHLORIDE 0.9% INJ 100 ML IV SCH (04:00)
[2016-07-26 04:17] LABS: AUTOMATED NEUTROPHIL # 5.4 TH/MM3 (1.8-7.7); BASOPHIL # 0.1 TH/MM3 (0-0.2); BASOPHIL % 1.1 % (0.0-2.0); EOSINOPHIL % 0.2 % (0.0-4.0); HEMATOCRIT 36.3 % (39.0-51.0); HEMO FLAGS DIFF FINAL; LYMPH % 11.7 % (9.0-44.0); LYMPHOCYTE # 0.9 TH/MM3 (1.0-4.8); MEAN CELL VOLUME 79.4 FL (80.0-100.0); MONO % 15.6 % (0.0-8.0); NEUT % 71.4 % (16.0-70.0); PLATELET COUNT 162 TH/MM3 (150-450); RED BLOOD COUNT 4.56 MIL/MM3 (4.50-5.90); WHITE BLOOD COUNT 7.6 TH/MM3 (4.0-11.0)
[2016-07-26 04:41] LABS: BICARBONATE 23.2 MEQ/L (21.0-32.0); POTASSIUM 3.7 MEQ/L (3.5-5.1)
[2016-07-26] MEDS: metroNIDAZOLE 500 MG TAB PO SCH ×3 (04:58→21:37)
[2016-07-26] MEDS: INSULIN ASPART SUPPLEMENTAL SCALE SQ SCH ×4 (05:48→21:40)
[2016-07-26 08:00] VITALS: BP 130/73; PULSE 78; RESP 19; TEMP 97.8; O2SAT 98
--- NOTE | 2016-07-26 08:59 | RADRPT ---
EXAM DATE/TIME: 07/26/2016 08:10 [facility] COMPARISON: CT BRAIN W/O CONTRAST, July 25, 2016, 0:36. MRI BRAIN W/O CONTRAST, March 20, 2015, 18:52. INDICATIONS : Left sided weakness. CVA. MEDICAL HISTORY : Cerebrovascular disease. Hypertension. SURGICAL HISTORY : Cholecystectomy. Appendectomy. Carotid endarterectomy. CABG. Left eye removed. ENCOUNTER: Subsequent ACUITY: 3 day PAIN SCORE: 0/10 LOCATION: head. TECHNIQUE: Multiplanar, multisequence MRI of the brain was performed without contrast. FINDINGS: CEREBRUM: The ventricles are normal for age. No evidence of midline shift, mass lesion, hemorrhage or acute in farction. No extraaxial fluid collections are seen. The pituitary gland and suprasellar cistern are normal in configuration. WHITE MATTER: No significant signal abnormalities are seen in the white matter. POSTERIOR FOSSA: The cerebellum is intact. Old ischemic changes in the brainstem. The 4th ventricle is midline. The ce rebellopontine angle is unremarkable. The cerebellar tonsils are normal in position.DIFFUSION IMAGIN G: No focal areas of restricted diffusion are seen. No evidence of acute infarction. EXTRACRANIAL: The visualized paranasal sinuses are unremarkable. Left orbital prosthesis. CONCLUSION: 1. No acute intracranial abnormality. 2. Chronic ischemic changes in the brainstem. Danny Jones MD on July 26, 2016 at 8:54 Board Certified Radiologist. This report was verified electronically.
[2016-07-26] MEDS: SODIUM CHLORIDE 0.9% FLUSH 10 ML FLUSH IV FLUSH SCH ×2 (09:00→21:37)
--- NOTE | 2016-07-26 09:14 | HHI.PR ---
Subjective Remarks f/u for infection and diarrhea patient continues to have multiple BMs. remains afebrile. he continues to feel weak but has no complaints. Patient fell last night when trying to get remote off the ground. He did not hit his head or any LOC. He denied any pain, DORSEY, visual changes or focal neurological deficits. Objective Vitals Vital Signs Date Time Temp Pulse Resp B/P Pulse Ox O2 Delivery O2 Flow Rate FiO2 07/26/16 08:00 97.8 78 19 130/73 98 07/26/16 04:00 97.8 86 20 127/80 97 07/26/16 00:00 98.9 92 22 148/82 96 07/25/16 21:21 99.0 89 18 132/79 97 07/25/16 20:32 99.0 90 18 123/65 98 07/25/16 20:00 92 07/25/16 16:00 98.6 84 16 132/74 95 07/25/16 12:00 99.9 86 22 129/75 95 I/O 07/25/16 07/25/16 07/25/16 07/26/16 07/26/16 07/26/16 07:00 15:00 23:00 07:00 15:00 23:00 Intake Total 75 ml 250 ml 1336 ml 1148 ml 120 ml Output Total 1600 ml Balance 75 ml -1350 ml 1336 ml 1148 ml 120 ml Intake Oral 75 ml 250 ml 480 ml 220 ml 120 ml IV Total 856 ml 928 ml Output Urine Total 1600 ml # Voids 1 1 3 2 # Bowel Movements 1 3 3 2 Result Diagram: 07/26/16 0400 07/26/16 0400 Objective Remarks GENERAL: in NAD HEENT: left eyelid is matted shut. CARDIOVASCULAR: Regular rate and rhythm without murmurs, gallops, or rubs. RESPIRATORY: Breath sounds equal bilaterally. No accessory muscle use. GASTROINTESTINAL: Abdomen soft, non-tender, nondistended. MUSCULOSKELETAL: No cyanosis, or edema. BACK: Nontender without obvious deformity. No CVA tenderness. NEURO: AAO X 3. CN 2-12 intact. Sensation and motor grossly intact. Medications and IVs Current Medications Sodium Chloride 1,000 ml @ 999 mls/hr BOLUS ONCE IV Last administered on t 23:21; Start 07/24/16 at 23:15; Stop 07/25/16 at 00:15; Status DC Vancomycin HCl 1000 mg/Sodium Chloride 250 ml @ 250 mls/hr ONCE ONCE IV Last administered on 07/25/16 02:56; Start 07/25/16 at 01:15; Stop 07/25/16 at 02:14 ; Status DC Ampicillin Sodium/ Sulbactam Sodium/ Sodium Chloride (Unasyn Inj/NS Inj) 100 ml @ 200 mls/hr ONCE ONCE IV ; Start 07/25/16 at 01:15; Stop 07/25/16 at 01:44; Status Cancel Morphine Sulfate (Morphine Inj) 2 mg ONCE ONCE IV PUSH Last administered on 02:57; Start 07/25/16 at 02:45; Stop 07/25/16 at 02:46; Status DC Ondansetron HCl 4 mg 4 mg ONCE ONCE IV PUSH Last administered on 07/25/16 02: 57; Start 07/25/16 at 02:45; Stop 07/25/16 at 02:46; Status DC Sodium Chloride (NS 1000 ml Inj) 1,000 ml @ 125 mls/hr Q8H IV Last administered on 07/25/16 02:57; Start 07/25/16 at 02:45; Stop 07/25/16 at 03:39 ; Status DC Sodium Chloride (NS Flush) 2 ml UNSCH PRN IV FLUSH FLUSH AFTER USING IV ACCESS ; Start 07/25/16 at 03:30 Sodium Chloride (NS Flush) 2 ml BID IV FLUSH Last administered on 07/25/16 21: 20; Start 07/25/16 at 09:00 Ondansetron HCl (Zofran Inj) 4 mg Q6H PRN IVP NAUSEA OR VOMITING; Start at 03:30 Naloxone HCl 0.4 mg 0.4 mg UNSCH PRN IV SEE LABEL COMMENTS; Start 07/25/16 at 03:30 Pharmacy Profile Note (Vancomycin Consult Pharmacy) 0 ml @ 0 mls/hr UNSCH OTHER ; Start 07/25/16 at 03:30 Dextrose (D50w (Vial) Inj) 25 ml UNSCH PRN IV PUSH HYPOGLYCEMIA-SEE COMMENTS; Start 07/25/16 at 03:30 Glucagon (Glucagon Inj) 1 mg UNSCH PRN OTHER HYPOGLYCEMIA-SEE COMMENTS; Start 07/25/16 at 03:30 Insulin Aspart 1 1 ACHS SLIDING SCALE SQ Last administered on 07/25/16 17:04 ; Start 07/25/16 at 07:00 Ampicillin Sodium/ Sulbactam Sodium 3 gm/Sodium Chloride 100 ml @ 200 mls/hr Q6H IV Last administered on 07/26/16 04:00; Start 07/25/16 at 04:00 Potassium Chloride/Sodium Chloride 1,000 ml @ 84 mls/hr [id number] IV Last administered on 07/25/16 16:42; Start 07/25/16 at 03:45 Vancomycin HCl/ Sodium Chloride (Vancomycin Inj/ NS 250 ml Inj) 250 ml @ 250 mls/hr ONCE ONCE IV Last administered on 07/25/16 05:52; Start 07/25/16 at 04 :00; Stop 07/25/16 at 04:59; Status DC Duloxetine HCl (Cymbalta Dr) 60 mg DAILY PO Last administered on 07/25/16 09: 30; Start 07/25/16 at 09:00 Fenofibrate (Tricor) 48 mg DAILY PO Last administered on 07/25/16 09:30; Start 07/25/16 at 09:00 Furosemide (Lasix) 20 mg DAILY PO Last administered on 07/25/16 09:30; Start 07/25/16 at 09:00 Insulin Detemir (Levemir Inj) 20 units BID SQ Last administered on 07/25/16 21 :54; Start 07/25/16 at 09:00 Metoprolol Tartrate (Lopressor) 25 mg BID PO Last administered on 07/25/16 21: 19; Start 07/25/16 at 09:00 Zolpidem Tartrate (Ambien) 10 mg HS PRN PO INSOMNIA Last administered on 21:19; Start 07/25/16 at 06:15 Pravastatin Sodium (Pravachol) 40 mg HS PO Last administered on 07/25/16 21:19 ; Start 07/25/16 at 21:00 Acetaminophen (Tylenol) 650 mg Q4H PRN PO fever>101 Last administered on 12:00; Start 07/25/16 at 10:15 Metronidazole (Flagyl) 500 mg Q8HR PO Last administered on 07/26/16 04:58; Start 07/25/16 at 16:15 Lactobacillus Acidophilus (Lactinex) 1 tab TID PO Last administered on 17:00; Start 07/25/16 at 18:00 A/P Assessment and Plan Probable SIRS -Fever and tachycardia. Lactic acidosis 2.5. -See treatment as below. recent left eye surgery with artificial globe -CT scan showed preseptal edema and sinus disease. -Per Picture Painter no signs of infection. Patient is currently on unasyn and received one dose of vancomycin. ID is ff and most likely can d/c unasyn. Left sided weakness- acute on chronic per patient -Patient has a history of CVA. Home medication resumed. -possible TIA. Patient stated that he feels like his left side is a lot weaker but on exam the pretty equal. -pending MRI results. - i think symptoms are more due to dehydration. Diarrhea -C. difficile negative. Most likely secondary to antibiotic use. Patient was put on Flagyl by infectious disease. -stool studies obtain. on probiotics. Acute renal failure -No baseline. Patient is on IV fluids. -repeat Cr is normal. Due to dehydration. Type 2 diabetes insulin dependent -On insulin sliding scale. -will restart on metformin tomorrow. Fall in hospital -will have PT evaluate. -neurological exam is the same. patient has no complaints on the fall. asymptomatic. dvt prophylaxis with lovenox Discharge Planning patient continues to be weak and has severe diarrhea will require further hospitalization. Amberly Bishop MD July 26, 2016 09:14
--- NOTE | 2016-07-26 09:19 | HHI.IDPN ---
Subjective Subjective Remarks 65 year old male admitted with weakness, diarrhea, F/C. Had recent placement artificial globe L. Notes reviewed Temps better overnight NO BM yet today No abdominal pain Creatinine better Stool neg for WBC Antibiotics UNasyn Flagyl Vanco x 1 dose yesterday Lines PIV Past Medical History Reviewed Allergies: Coded Allergies: No Known Allergies (Verified , 03/18/15) Objective . Vital Signs Date Time Temp Pulse Resp B/P Pulse Ox O2 Delivery O2 Flow Rate FiO2 07/26/16 08:00 97.8 78 19 130/73 98 07/26/16 04:00 97.8 86 20 127/80 97 07/26/16 00:00 98.9 92 22 148/82 96 07/25/16 21:21 99.0 89 18 132/79 97 07/25/16 20:32 99.0 90 18 123/65 98 07/25/16 20:00 92 07/25/16 16:00 98.6 84 16 132/74 95 07/25/16 12:00 99.9 86 22 129/75 95 07/25/16 07/25/16 07/26/16 15:00 23:00 07:00 Intake Total 250 ml 1336 ml 1148 ml Output Total 1600 ml Balance -1350 ml 1336 ml 1148 ml Intake Oral 250 ml 480 ml 220 ml IV Total 856 ml 928 ml Output Urine Total 1600 ml # Voids 1 3 2 # Bowel Movements 3 3 2 . Laboratory Tests Test 07/24/16 07/26/16 23:15 04:00 White Blood Count 9.1 TH/MM3 7.6 TH/MM3 Red Blood Count 5.08 MIL/MM3 4.56 MIL/MM3 Hemoglobin 14.0 GM/DL 12.3 GM/DL Hematocrit 40.5 % 36.3 % Mean Corpuscular Volume 79.9 FL 79.4 FL Mean Corpuscular Hemoglobin 27.5 PG 27.0 PG Mean Corpuscular Hemoglobin 34.5 % 34.0 % Concent Red Cell Distribution Width 15.0 % 15.0 % Platelet Count 194 TH/MM3 162 TH/MM3 Mean Platelet Volume 8.1 FL 7.8 FL Neutrophils (%) (Auto) 81.2 % 71.4 % Lymphocytes (%) (Auto) 9.3 % 11.7 % Monocytes (%) (Auto) 8.8 % 15.6 % Eosinophils (%) (Auto) 0.0 % 0.2 % Basophils (%) (Auto) 0.7 % 1.1 % Neutrophils # (Auto) 7.4 TH/MM3 5.4 TH/MM3 Lymphocytes # (Auto) 0.9 TH/MM3 0.9 TH/MM3 Monocytes # (Auto) 0.8 TH/MM3 1.2 TH/MM3 Eosinophils # (Auto) 0.0 TH/MM3 0.0 TH/MM3 Basophils # (Auto) 0.1 TH/MM3 0.1 TH/MM3 CBC Comment DIFF FINAL DIFF FINAL Differential Comment Laboratory Tests Test 07/24/16 07/26/16 23:15 04:00 Sodium Level 132 MEQ/L 137 MEQ/L Potassium Level 3.5 MEQ/L 3.7 MEQ/L Chloride Level 100 MEQ/L 104 MEQ/L Carbon Dioxide Level 20.3 MEQ/L 23.2 MEQ/L Anion Gap 12 MEQ/L 10 MEQ/L Blood Urea Nitrogen 25 MG/DL 14 MG/DL Creatinine 2.04 MG/DL 1.23 MG/DL Estimat Glomerular Filtration 33 ML/MIN 59 ML/MIN Rate Random Glucose 104 MG/DL 154 MG/DL Lactic Acid Level 2.3 mmol/L 1.0 mmol/L Calcium Level 9.0 MG/DL 8.4 MG/DL Total Bilirubin 0.9 MG/DL Aspartate Amino Transf 53 U/L (AST/SGOT) Alanine Aminotransferase 30 U/L (ALT/SGPT) Alkaline Phosphatase 64 U/L Total Creatine Kinase 318 U/L Creatine Kinase MB 1.7 NG/ML Creatine Kinase MB % 0.5 % Troponin I 0.03 NG/ML Total Protein 7.5 GM/DL Albumin 3.5 GM/DL Microbiology Date/Time Procedure Status Source Growth 07/24/16 23:00 Aerobic Blood Culture - Preliminary Resulted Blood Peripheral NO GROWTH IN 1 DAY 07/24/16 23:00 Anaerobic Blood Culture - Preliminary Resulted Blood Peripheral NO GROWTH IN 1 DAY 07/24/16 23:15 Aerobic Blood Culture - Preliminary Resulted Blood Peripheral NO GROWTH IN 1 DAY 07/24/16 23:15 Anaerobic Blood Culture - Preliminary Resulted Blood Peripheral NO GROWTH IN 1 DAY 07/25/16 17:56 Received Stool Stool Pending 07/25/16 17:56 Cryptosporidium Exam Resulted Stool Stool Pending 07/25/16 17:56 Stool Pus ([facility]) - Final Resulted Stool Stool NO WBC'S SEEN 07/25/16 17:56 Giardia Antigen ([facility]) Resulted Stool Stool Pending Imaging Last Impressions Brain MRI 07/26/16 0000 Signed Impressions: Service Date/Time: July 08:10 - CONCLUSION: 1. No acute intracranial abnormality. 2. Chronic ischemic changes in the brainstem. Danny Jones MD Head CT [id number] Signed Impressions: Service Date/Time: Monday, July 25, 2016 00:36 - CONCLUSION: 1. See the CT of the facial bones dictated separately. 2. No acute intracranial abnormality. Rodriguez Sifuentes Jr., MD Chest X-Ray [id number] Signed Impressions: Service Date/Time: Sunday, July 24, 2016 23:24 - CONCLUSION: No acute disease. Rodriguez Sifuentes Jr., MD Maxillofacial CT 07/24/16 0000 Signed Impressions: Service Date/Time: Monday, July 25, 2016 00:36 - CONCLUSION: 1. Artificial globe involving the left orbit with significant preseptal soft tissue swelling. Retrobulbar tissues are clean. 2. 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 Rodriguez Sifuentes Jr., MD Physical Exam GENERAL: awake and alert, not in respiratory distress. SKIN: Cool and dry. No generalized rash, no ecchymosis. HEAD: Normocephalic. No temporal or scalp tenderness. EYES: R Pupil equal round and reactive. Extraocular motions intact. No scleral icterus. No injection or drainage. L eye - shut closed, has some brownish drainage, no significant redness, no purulence ENT: Nose without bleeding, or purulent drainage. Moist oral mucosa, wears upper dentures. Throat without erythema, or exudate. Uvula midline. Airway patent. NECK: Trachea midline. No JVD or lymphadenopathy. Supple, nontender, no meningeal signs. CARDIOVASCULAR: Regular rate and rhythm without murmurs, gallops, or rubs. RESPIRATORY: Clear to auscultation. Breath sounds equal bilaterally. No wheezes , rales, or rhonchi. GASTROINTESTINAL: Abdomen soft, bowel sounds present and normoactive, nondistended, min tender. No hepato-splenomegaly, or palpable masses. No guarding. No rebound MUSCULOSKELETAL: Extremities without clubbing, cyanosis, or edema. No joint tenderness, effusion, or edema noted. No calf tenderness. Negative Homans sign bilaterally. NEUROLOGICAL: Awake and alert. No facial asymmetry. R eye full EOM. Tongue midline. UE motor 5/5. LE 5/5. No Babinski, no clonus. Slightly slurred speech. PSYCH: Calm and cooperative LINE: PIV no evidence of infection Assessment & Plan Remarks IMPRESSION Sepsis on presentation, source? - complains of diarrhea, C diff negative, ?other infectious etiology - no WBC in stool, ?viral - UA ok - CXR clear, no synpotoms - clinically his L eye has no swelling or redness or induration S/P L artificial globe placement Renal insufficiency likely due to diarrhea, dehydration RECOMMENDATION Stop Unasyn No further need for IV vanco Continue Flagyl for now Follow stool studies Follow C/S Follow clinically If temps normal overnight, and stool studies and C/S negative, should be able to D/C tomorrow on no Abx Explained plan to patient Karen Junior MD July 26, 2016 09:19
[2016-07-26] MEDS: FUROSEMIDE 20 MG TAB PO SCH (09:28)
[2016-07-26] MEDS: LACTOBACILLUS ACIDOPHILUS TAB PO SCH ×3 (09:28→17:51)
[2016-07-26] MEDS: DULoxetine HCl DR 60 MG CAP PO SCH (09:28)
[2016-07-26] MEDS: METOPROLOL TARTRATE 25 MG TAB PO SCH ×2 (09:28→21:37)
[2016-07-26] MEDS: FENOFIBRATE 48 MG TAB PO SCH (09:28)
[2016-07-26] MEDS: INSULIN DETEMIR 100 UNITS/ML VIAL SQ SCH ×2 (09:30→21:39)
[2016-07-26 12:00] VITALS: BP 142/81; PULSE 76; RESP 20; TEMP 98.1; O2SAT 95
[2016-07-26 16:00] VITALS: BP 103/61; PULSE 69; RESP 19; TEMP 96.9; O2SAT 98
--- NOTE | 2016-07-26 17:06 | MB ---
cc: ZULY WILSON M.D. DATE OF CONSULTATION: 07/26/2016. OPHTHALMOLOGY FOLLOW UP HISTORY OF PRESENT ILLNESS: The patient is a 65-year-old man who was admitted with a diarrheal illness and possible orbital cellulitis. His physical examination was basically entirely normal, given his recent postoperative status from orbital surgery. There was really no evidence of orbital or pre-septal bacterial infection. I stopped by to check on the patient today and he has no new complaints. His diarrheal illness is improving quite a bit for history. PHYSICAL EXAMINATION: The physical examination is limited to the eyes and ocular adnexa. Basically it is unchanged from yesterday. There is only mild upper lid edema. There is no orbital edema or conjunctival edema or injection. There is no orbital tenderness. IMPRESSION: Again, no evidence of orbital or pre-septal cellulitis. I understand the patient is planned for discharge tomorrow and he knows to follow up with his eye surgeon on Saturday. MD KUSUM Jackson/MARYCARMEN /4:39 PM /5:00 PM
[2016-07-26 20:00] VITALS: BP 134/74; PULSE 69; PULSE 70; RESP 17; TEMP 96.3; O2SAT 97
[2016-07-26] MEDS: PRAVASTATIN SOD 40 MG TAB PO SCH (21:37)
[2016-07-26] MEDS: ZOLPIDEM TARTRATE 10 MG TAB PO PRN (21:44)
[2016-07-27] VITALS: BP 121/72; PULSE 72; RESP 17; TEMP 96.6; O2SAT 98
[2016-07-27 04:00] VITALS: BP 118/70; PULSE 68; RESP 17; TEMP 96.2; O2SAT 98
[2016-07-27 05:14] LABS: HEMATOCRIT 33.4 % (39.0-51.0); MEAN CELL VOLUME 79.6 FL (80.0-100.0); MEAN CORPUSCULAR HEMOGLOBIN 27.9 PG (27.0-34.0); MEAN CORPUSCULAR HGB CONC 35.1 % (32.0-36.0); PLATELET COUNT 156 TH/MM3 (150-450); RED CELL DISTRIBUTION WIDTH 14.7 % (11.6-17.2); REVIEW FLAG FINAL; WHITE BLOOD COUNT 6.7 TH/MM3 (4.0-11.0)
[2016-07-27] MEDS: metroNIDAZOLE 500 MG TAB PO SCH (05:22)
[2016-07-27 05:40] LABS: BICARBONATE 25.7 MEQ/L (21.0-32.0); POTASSIUM 3.5 MEQ/L (3.5-5.1)
[2016-07-27] MEDS: INSULIN ASPART SUPPLEMENTAL SCALE SQ SCH ×2 (06:26→11:00)
[2016-07-27 08:00] VITALS: BP 120/72; PULSE 70; RESP 19; TEMP 97.8; O2SAT 97
[2016-07-27] MEDS ORDERED: CIPROFLOXACIN 500 MG TAB PO SCH (09:00)
[2016-07-27] MEDS: SODIUM CHLORIDE 0.9% FLUSH 10 ML FLUSH IV FLUSH SCH (09:00)
[2016-07-27] MEDS: FENOFIBRATE 48 MG TAB PO SCH (09:01)
[2016-07-27] MEDS: INSULIN DETEMIR 100 UNITS/ML VIAL SQ SCH (09:01)
[2016-07-27] MEDS: LACTOBACILLUS ACIDOPHILUS TAB PO SCH (09:02)
[2016-07-27] MEDS: METOPROLOL TARTRATE 25 MG TAB PO SCH (09:02)
[2016-07-27] MEDS: DULoxetine HCl DR 60 MG CAP PO SCH (09:02)
[2016-07-27] MEDS: FUROSEMIDE 20 MG TAB PO SCH (09:02)
--- NOTE | 2016-07-27 09:03 | HHI.IDPN ---
Subjective Subjective Remarks 65 year old male admitted with weakness, diarrhea, F/C. Had recent placement artificial globe L. Notes reviewed D/W RN Temps normal, no further fever No BM this morning No abdominal pain Creatinine better Stool neg for WBC Stool (+) Salmonella Antibiotics Flagyl Lines PIV Past Medical History Reviewed Allergies: Coded Allergies: No Known Allergies (Verified , 03/18/15) Objective . Vital Signs Date Time Temp Pulse Resp B/P Pulse Ox O2 Delivery O2 Flow Rate FiO2 07/27/16 08:00 97.8 70 19 120/72 97 07/27/16 04:00 96.2 68 17 118/70 98 07/27/16 00:00 96.6 72 17 121/72 98 07/26/16 20:00 70 07/26/16 20:00 96.3 69 17 134/74 97 07/26/16 16:00 96.9 69 19 103/61 98 07/26/16 12:00 98.1 76 20 142/81 95 07/26/16 07/26/16 07/27/16 15:00 23:00 07:00 Intake Total 1773 ml 240 ml 240 ml Output Total 800 ml 400 ml Balance 973 ml -160 ml 240 ml Intake Oral 1080 ml 240 ml 240 ml IV Total 693 ml Output Urine Total 800 ml 400 ml # Voids 1 1 # Bowel Movements 3 . Laboratory Tests Test 07/26/16 07/27/16 04:00 03:52 White Blood Count 7.6 TH/MM3 6.7 TH/MM3 Red Blood Count 4.56 MIL/MM3 4.20 MIL/MM3 Hemoglobin 12.3 GM/DL 11.7 GM/DL Hematocrit 36.3 % 33.4 % Mean Corpuscular Volume 79.4 FL 79.6 FL Mean Corpuscular Hemoglobin 27.0 PG 27.9 PG Mean Corpuscular Hemoglobin 34.0 % 35.1 % Concent Red Cell Distribution Width 15.0 % 14.7 % Platelet Count 162 TH/MM3 156 TH/MM3 Mean Platelet Volume 7.8 FL 8.3 FL Neutrophils (%) (Auto) 71.4 % Lymphocytes (%) (Auto) 11.7 % Monocytes (%) (Auto) 15.6 % Eosinophils (%) (Auto) 0.2 % Basophils (%) (Auto) 1.1 % Neutrophils # (Auto) 5.4 TH/MM3 Lymphocytes # (Auto) 0.9 TH/MM3 Monocytes # (Auto) 1.2 TH/MM3 Eosinophils # (Auto) 0.0 TH/MM3 Basophils # (Auto) 0.1 TH/MM3 CBC Comment DIFF FINAL Differential Comment Laboratory Tests Test 07/26/16 07/27/16 04:00 03:52 Sodium Level 137 MEQ/L 141 MEQ/L Potassium Level 3.7 MEQ/L 3.5 MEQ/L Chloride Level 104 MEQ/L 106 MEQ/L Carbon Dioxide Level 23.2 MEQ/L 25.7 MEQ/L Anion Gap 10 MEQ/L 9 MEQ/L Blood Urea Nitrogen 14 MG/DL 17 MG/DL Creatinine 1.23 MG/DL 1.17 MG/DL Estimat Glomerular Filtration 59 ML/MIN 63 ML/MIN Rate Random Glucose 154 MG/DL 141 MG/DL Lactic Acid Level 1.0 mmol/L Calcium Level 8.4 MG/DL 8.2 MG/DL Microbiology Date/Time Procedure Status Source Growth 07/24/16 23:00 Aerobic Blood Culture - Preliminary Resulted Blood Peripheral NO GROWTH IN 2 DAYS 07/24/16 23:00 Anaerobic Blood Culture - Preliminary Resulted Blood Peripheral NO GROWTH IN 2 DAYS 07/24/16 23:15 Aerobic Blood Culture - Preliminary Resulted Blood Peripheral NO GROWTH IN 2 DAYS 07/24/16 23:15 Anaerobic Blood Culture - Preliminary Resulted Blood Peripheral NO GROWTH IN 2 DAYS 07/25/16 17:56 - Final Complete Stool Stool Salmonella Species 07/25/16 17:56 Cryptosporidium Exam - Final Complete Stool Stool NEGATIVE - NO CRYPTOSPORIDIUM ANTIGEN... 07/25/16 17:56 Stool Pus ([facility]) - Final Complete Stool Stool NO WBC'S SEEN 07/25/16 17:56 Giardia Antigen ([facility]) - Final Complete Stool Stool NEGATIVE - NO GIARDIA ANTIGEN DETECTE... Imaging Last Impressions Brain MRI 07/26/16 0000 Signed Impressions: Service Date/Time: July 08:10 - CONCLUSION: 1. No acute intracranial abnormality. 2. Chronic ischemic changes in the brainstem. Danny Jones MD Head CT 07/24/16 2309 Signed Impressions: Service Date/Time: Monday, July 25, 2016 00:36 - CONCLUSION: 1. See the CT of the facial bones dictated separately. 2. No acute intracranial abnormality. Rodriguez Sifuentes Jr., MD Chest X-Ray 07/24/16 2309 Signed Impressions: Service Date/Time: Sunday, July 24, 2016 23:24 - CONCLUSION: No acute disease. Rodriguez Sifuentes Jr., MD Maxillofacial CT 07/24/16 0000 Signed Impressions: Service Date/Time: Monday, July 25, 2016 00:36 - CONCLUSION: 1. Artificial globe involving the left orbit with significant preseptal soft tissue swelling. Retrobulbar tissues are clean. 2. 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 Rodriguez Sifuentes Jr., MD Physical Exam GENERAL: awakens easily, NAD SKIN: Cool and dry. No generalized rash. HEAD: Normocephalic. No temporal or scalp tenderness. EYES: R Pupil equal round and reactive. Extraocular motions intact. No scleral icterus. No injection or drainage. L eye - shut closed, no significant redness, no purulence ENT: Nose without bleeding, or purulent drainage. Moist oral mucosa, wears upper dentures. Throat without erythema, or exudate. Uvula midline. Airway patent. NECK: Trachea midline. No JVD or lymphadenopathy. Supple, nontender, no meningeal signs. CARDIOVASCULAR: Regular rate and rhythm without murmurs, gallops, or rubs. RESPIRATORY: Clear to auscultation. Breath sounds equal bilaterally. No wheezes , rales, or rhonchi. GASTROINTESTINAL: Abdomen soft, bowel sounds present and normoactive, nondistended, min tender. No guarding. No rebound MUSCULOSKELETAL: Extremities without clubbing, cyanosis, or edema. No joint tenderness, effusion, or edema noted. No calf tenderness. Negative Homans sign bilaterally. NEUROLOGICAL: Awake and alert. No facial asymmetry. R eye full EOM. Tongue midline. UE motor 5/5. LE 5/5. No Babinski, no clonus. Slightly slurred speech. 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
[2016-07-27] MEDS ORDERED: CIPR-9 PO (09:39)
[2016-07-27] MEDS ORDERED: LACT PO (09:39)
--- NOTE | 2016-07-27 09:40 | HHI.DCPOC ---
Discharge Care Plan Diagnosis: (1) Salmonella enteritis (2) Acute kidney failure Goals to Promote Your Health * To prevent worsening of your condition and complications * To maintain your health at the optimal level Directions to Meet Your Goals Take your medications as prescribed Follow your dietary instruction Follow activity as directed Keep your appointments as scheduled Take your immunizations and boosters as scheduled If your symptoms worsen call your PCP, if no PCP go to Urgent Care Center or Emergency Room Smoking is Dangerous to Your Health. Avoid second hand smoke Call the 24-hour hour crisis hotline for domestic abuse at Amberly Bishop MD July 27, 2016 09:40
--- NOTE | 2016-07-27 09:40 | HHI.DS ---
Discharge Summary Admission Date July 25, 2016 at 03:16 Discharge Date: July 27, 2016 Admitting Diagnosis periorbital cellulitis. Renal insufficiency (1) Salmonella enteritis ICD Code: A02.0 Diagnosis: Principal (2) Acute kidney failure ICD Code: N17.9 Diagnosis: Principal (3) Weakness ICD Code: R53.1 Diagnosis: Principal (4) Dehydration ICD Code: E86.0 Diagnosis: Principal Procedures none Brief History - From Admission hx from patient, ER communication and review of records stated came to hospital because he could not move his LUE and LLE , with associated numbness and tingling starting around 10p.m. 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 and this is second time since surgery, had fever, chills no nausea, no vomiting, no black or red stool, no blood in urine however, had diarrhea- 2 days, about 10x each day no drainage or pus from surgery site he did see his eye surgeon on Saturday and has an appointment to see him tomorrow CBC/BMP: 07/27/16 0352 07/27/16 0352 Significant Findings Laboratory Tests Test 07/24/16 07/25/16 07/26/16 07/27/16 23:15 06:45 04:00 03:52 Mean Corpuscular Volume 79.9 FL 79.4 FL 79.6 FL (80.0-100.0) (80.0-100.0) (80.0-100.0) Neutrophils (%) (Auto) 81.2 % 71.4 % (16.0-70.0) (16.0-70.0) Monocytes (%) (Auto) 8.8 % (0.0-8.0) 15.6 % (0.0-8.0) Lymphocytes # (Auto) 0.9 TH/MM3 0.9 TH/MM3 (1.0-4.8) (1.0-4.8) Prothrombin Time 11.7 SEC (9.8-11.6) Sodium Level 132 MEQ/L (136-145) Carbon Dioxide Level 20.3 MEQ/L (21.0-32.0) Blood Urea Nitrogen 25 MG/DL (7-18) Creatinine 2.04 MG/DL (0.60-1.30) Estimat Glomerular Filtration 33 ML/MIN (>89) 59 ML/MIN (>89) 63 ML/MIN (>89) Rate Lactic Acid Level 2.3 mmol/L (0.4-2.0) Aspartate Amino Transf 53 U/L (15-37) (AST/SGOT) Total Creatine Kinase 318 U/L (39-308) Urine Turbidity HAZY (CLEAR) Urine Ketones TRACE mg/dL (NEG) Urine Occult Blood TRACE (NEG) Urine RBC 8 /hpf (0-3) Urine Uric Acid Crystals OCC /hpf (NONE) Urine Mucus FEW /lpf (OCC) Hemoglobin 12.3 GM/DL 11.7 GM/DL (13.0-17.0) (13.0-17.0) Hematocrit 36.3 % 33.4 % (39.0-51.0) (39.0-51.0) Monocytes # (Auto) 1.2 TH/MM3 (0-0.9) Random Glucose 154 MG/DL 141 MG/DL (74-106) (74-106) Calcium Level 8.4 MG/DL 8.2 MG/DL (8.5-10.1) (8.5-10.1) Red Blood Count 4.20 MIL/MM3 (4.50-5.90) Imaging Last Impressions Brain MRI 07/26/16 0000 Signed Impressions: Service Date/Time: July 08:10 - CONCLUSION: 1. No acute intracranial abnormality. 2. Chronic ischemic changes in the brainstem. Danny Jones MD Head CT [id number]/[id number] Signed Impressions: Service Date/Time: Monday, July 25, 2016 00:36 - CONCLUSION: 1. See the CT of the facial bones dictated separately. 2. No acute intracranial abnormality. Rodriguez Sifuentes Jr., MD Chest X-Ray [id number]/[id number] Signed Impressions: Service Date/Time: Sunday, July 24, 2016 23:24 - CONCLUSION: No acute disease. Rodriguez Sifuentes Jr., MD Maxillofacial CT 07/24/16 0000 Signed Impressions: Service Date/Time: Monday, July 25, 2016 00:36 - CONCLUSION: 1. Artificial globe involving the left orbit with significant preseptal soft tissue swelling. Retrobulbar tissues are clean. 2. 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 Rodriguez Sifuentes Jr., MD PE at Discharge GENERAL: in NAD HEENT: left eyelid is matted shut. CARDIOVASCULAR: Regular rate and rhythm without murmurs, gallops, or rubs. RESPIRATORY: Breath sounds equal bilaterally. No accessory muscle use. GASTROINTESTINAL: Abdomen soft, non-tender, nondistended. MUSCULOSKELETAL: No cyanosis, or edema. BACK: Nontender without obvious deformity. No CVA tenderness. NEURO: AAO X 3. CN 2-12 intact. Sensation and motor grossly intact. Pt update on day of discharge f/u for infection diarrhea improved. patient stated weakness as resolved and he stated he wants to go home. denied any focal neurological deficits. he is tolerating PO intake. denied any pain. Hospital Course Probable SIRS -Fever and tachycardia. Lactic acidosis 2.5. -See treatment as below. recent left eye surgery with artificial globe -CT scan showed preseptal edema and sinus disease. -Per Geophysics Professor no signs of infection. Patient treated empirically with unasyn and received one dose of vancomycin. ID was consulted. unasyn was d/angel. Left sided weakness- acute on chronic per patient -Patient has a history of CVA. Home medication resumed. -possible TIA. Patient stated that he feels like his left side is a lot weaker but on exam the pretty equal. - MRI negative for any acute process. most likely due to dehydration. Salmonella Enteritis -C. difficile negative. stool studies negative for Salmonella. -due to sik factors treated with cipro. Improved throughout hospital course. -education given. Acute renal failure -due to dehydration. patient treated with IV fluids. -Resolved with fluids. Type 2 diabetes insulin dependent -On insulin sliding scale. -metformin restarted on discharge. Fall in hospital -due to weakness. no symptoms from fall. -neurological exam is the same. patient has no complaints on the fall. asymptomatic. Pt Condition on Discharge: Good Discharge Disposition: Discharge Home Discharge Time: <= 30 minutes Discharge Instructions DIET: Follow Instructions for: Heart Healthy Diet, Diabetic Diet Activities you can perform: Regular-No Restrictions Follow up Referrals: PCP Follow-up - 1 Week New Medications: Ciprofloxacin (Cipro) 500 Mg Tab 500 MG PO Q12HR infection #20 Ref 0 TAB Lactobacillus Acidophilus (Acidophilus/l-Sporogenes) 1 Tab Tab 1 TAB PO TID prevention of diarrhea #30 Ref 0 TAB Continued Medications: Aspirin (Aspirin) 81 Mg Tabdr 81 MG PO DAILY TAB Clopidogrel (Plavix) 75 Mg Tab 75 MG PO DAILY Blood Clot Prevention #[address] Ref [address] (Cymbalta DR) 60 Mg Capdr 60 MG PO DAILY #30 Ref 0 CAP Fenofibrate (Tricor) 48 Mg Tab 48 MG PO DAILY Tke with food. #30 Ref 0 TAB Furosemide (Lasix) 20 Mg Tab 20 MG PO DAILY #30 Ref 0 TAB Hydrocodone-Acetaminophen ([place]) 5-325 mg Tab 1 TAB PO Q4H PRN PAIN Ref 0 TAB Insulin Detemir Inj (Levemir Inj) 1,000 unit/ 10 ML Vial 20 UNITS SQ BID Do not mix with any other Insulin. Blood Sugar Management Ref 0 VIAL Metoprolol Tartrate (Metoprolol Tartrate) 25 Mg Tab 25 MG PO BID #60 Ref 0 TAB Simvastatin (Simvastatin) 20 Mg Tab 20 MG PO HS Cholesterol Management #30 Ref 0 TAB Zolpidem (Ambien) 10 Mg Tab 10 MG PO HS PRN INSOMNIA Ref 0 TAB Amberly Bishop MD July 27, 2016 09:40
== END 2016-07-27 12:16 | disposition home or self-care (01) | DRG 372 ==
LOC: NEPC 22:51 → NEDH 07-25 03:16 → N07B 07-25 04:56
PROVIDERS: ADMIT Family Medicine; ATTEND Family Medicine
DX: A02.0 Salmonella enteritis (principal); E87.2 Acidosis; N17.9 Acute kidney failure, unspecified; I69.354 Hemiplegia and hemiparesis following cerebral infarction affecting left non-dominant side; I10 Essential (primary) hypertension; E11.9 Type 2 diabetes mellitus without complications; J32.4 Chronic pansinusitis; E78.00 Pure hypercholesterolemia, unspecified; E86.0 Dehydration; I69.392 Facial weakness following cerebral infarction; E78.5 Hyperlipidemia, unspecified; I25.10 Atherosclerotic heart disease of native coronary artery without angina pectoris; Z95.1 Presence of aortocoronary bypass graft; Z95.5 Presence of coronary angioplasty implant and graft; Z90.01 Acquired absence of eye; Z79.4 Long term (current) use of insulin; W19.XXXA Unspecified fall, initial encounter; Y92.230 Patient room in hospital as the place of occurrence of the external cause
CPT/HCPCS: 70450; 70486; 70551; 71010; 80048; 80053; 80202; 81001; 82550; 82552; 82948; 83605; 84484; 85025; 85027; 85610; 85730; 87040; 87205; 87328; 87329; 87493; 87506; 93005; 96361; 96365; 96375; J0295; J1815; J2270; J2405; J3370; J3480; J7030; J7050